=== PATIENT | female | born 1985 | race American Indian/Alaskan Native ===

== ENCOUNTER 2018-06-27 14:07 | Emergency (ER) | payer OTHER ==
[2018-06-27 14:24] VITALS: BP 101/66
--- NOTE | 2018-06-27 14:50 | Emergency Department Report ---
ED Chest Pain HPI - General Chief Complaint: Chest Pain Stated Complaint: CHEST PAIN Time Seen by Provider: 06/27/18 14:45 Source: patient Mode of arrival: Wheelchair Limitations: No Limitations - History of Present Illness Initial Comments: This 33-year-old female here via ambulance report that she is having chest pain since last night without any radiation. Chest pain is located to the mid chest. Pain is 6 out of 10 and feels like something is pressing on his chest. Denies any burning or bruit.. Denies any nausea present but she says she was not suspicious earlier. No radiation of pain. Patient was given Zofran by EMS. Denies any fevers chills. Denies any urinary burning, frequency or urgency. She has reports that she was having some shortness of breath. Denies any abdominal back pain. Denies any vaginal bleeding or discharge. No history of blood clots and no control. MD Complaint: chest pain (chest pain and shortness of breath) -: Last night Onset: during rest Pain Location: substernal Pain Radiation: none Severity: moderate Severity scale (0 -10): 6 Quality: heaviness, pressure Consistency: constant Improves With: nothing Worsens With: nothing Context: other (unknown) re: nausea, dyspnea. denies: vomting, diaphoresis, sense of impending doom Other Symptoms: denies: cough, fever, syncope, rash, acid taste in mouth, leg swelling, palpitations, burping Treatments Prior to Arrival: other (Zofran for nausea via EMS) Aspirin use within the Past 7 Days: (0) No - Related Data On Oral Contraceptives: No Previous Rx's Medication Instructions Recorded Last Taken Type Amoxicillin/Potassium Clav 1 each PO BID #14 tablet 05/26/18 Unknown Rx [Augmentin 875-125 Tablet] Naproxen [Naprosyn] 500 mg PO BID PRN #12 tablet 06/27/18 Unknown Rx Ondansetron [Zofran ODT TAB] 8 mg PO Q8HR PRN #12 tab.rapdis 06/27/18 Unknown Rx Allergies Allergy/AdvReac Type Severity Reaction Status Date / Time No Known Allergies Allergy Verified 06/27/18 14:18 Heart Score - HEART Score History: Slightly suspicious EKG: Normal Age: < 45 Risk factors: No known risk factors Troponin: < normal limit HEART Score: 0 ED Review of Systems ROS: Stated complaint: CHEST PAIN Other details as noted in HPI Constitutional: denies: chills, fever Eyes: denies: vision change ENT: denies: ear pain, throat pain, congestion Respiratory: shortness of breath, SOB at rest. denies: cough, wheezing Cardiovascular: chest pain. denies: palpitations, dyspnea on exertion, edema, syncope Gastrointestinal: nausea. denies: abdominal pain, vomiting, diarrhea, constipation Genitourinary: denies: urgency, dysuria, hematuria, abnormal menses Skin: denies: rash Neurological: denies: headache, weakness, abnormal gait, vertigo ED Past Medical Hx - Past Medical History Previous Medical History?: No Additional medical history: Vaginal delivery x 2 - Surgical History Past Surgical History?: No - Family History Family history: hypertension - Social History Smoking Status: Never Smoker Substance Use Type: None - Medications Home Medications: Home Medications Medication Instructions Recorded Confirmed Last Taken Type Amoxicillin/Potassium Clav 1 each PO BID #14 tablet 05/26/18 Unknown Rx [Augmentin 875-125 Tablet] Naproxen [Naprosyn] 500 mg PO BID PRN #12 tablet 06/27/18 Unknown Rx Ondansetron [Zofran ODT TAB] 8 mg PO Q8HR PRN #12 tab.rapdis 06/27/18 Unknown Rx ED Physical Exam - General Limitations: No Limitations General appearance: alert, in no apparent distress - Head Head exam: Present: atraumatic, normocephalic, normal inspection - Eye Eye exam: Present: normal appearance, PERRL, EOMI Pupils: Present: normal accommodation - ENT ENT exam: Present: normal exam, normal orophraynx, mucous membranes moist - Neck Neck exam: Present: normal inspection, full ROM. Absent: tenderness - Respiratory Respiratory exam: Present: normal lung sounds bilaterally. Absent: respiratory distress, wheezes, rales, rhonchi, stridor, chest wall tenderness, accessory muscle use, decreased breath sounds, prolonged expiratory - Cardiovascular Cardiovascular Exam: Present: regular rate, normal rhythm, normal heart sounds. Absent: systolic murmur, diastolic murmur - GI/Abdominal GI/Abdominal exam: Present: soft, normal bowel sounds. Absent: distended, tenderness, rigid, organomegaly - Extremities Exam Extremities exam: Present: normal inspection, full ROM, normal capillary refill, other (No cce. + 2 pulses in all extremities, no neurovascular compromise). Absent: tenderness, pedal edema, joint swelling, calf tenderness - Back Exam Back exam: Present: normal inspection, full ROM, other (ambulates without any difficulties). Absent: tenderness, CVA tenderness (R), CVA tenderness (L) - Psychiatric Psychiatric exam: Present: anxious (mild anxiety). Absent: depressed, manic, homicidal ideation, suicidal ideation - Skin Skin exam: Present: warm, dry, intact, normal color. Absent: rash ED Course Vital Signs 06/27/18 14:18 Temperature 98.7 F Pulse Rate 77 Respiratory 18 Rate Blood Pressure 101/66 O2 Sat by Pulse 97 Oximetry - Reevaluation(s) Reevaluation #1: 06/27/18 16:34 Patient received 1 L IV fluid normal saline bolus and aspirin 325 mg by mouth. lab for a chest x-ray reviewed and within normal limits. test negative. Patient is feeling better DESTIN score - Destin Score Age > 65: (0) No Aspirin use within the Past 7 Days: (0) No 3 or more CAD Risk Factors: (0) No 2 or more Angina events in past 24 hrs: (0) No Known CAD with more than 50% Stenosis: (0) No Elevated Cardiac Markers: (0) No ST Deviation Greater than 0.5mm: (0) No DESTIN Score: 0 ED Medical Decision Making - Lab Data Result diagrams: 06/27/18 15:01 06/27/18 15:01 Lab Results 06/27/18 06/27/18 06/27/18 Range/Units 15:01 15:01 15:01 WBC 9.6 (4.5-11.0) K/mm3 RBC 4.55 (3.65-5.03) M/mm3 Hgb 14.4 H (10.1-14.3) gm/dl Hct 42.8 (30.3-42.9) % MCV 94 (79-97) fl MCH 32 (28-32) pg MCHC 34 (30-34) % RDW 13.9 (13.2-15.2) % Plt Count 295 (140-440) K/mm3 Lymph % (Auto) 29.4 (13.4-35.0) % Lake % (Auto) 8.0 H (0.0-7.3) % Eos % (Auto) 0.5 (0.0-4.3) % Baso % (Auto) 0.4 (0.0-1.8) % Lymph # 2.8 (1.2-5.4) K/mm3 Lake # 0.8 (0.0-0.8) K/mm3 Eos # 0.0 (0.0-0.4) K/mm3 Baso # 0.0 (0.0-0.1) K/mm3 Seg Neutrophils % 61.7 (40.0-70.0) % Seg Neutrophils # 5.9 (1.8-7.7) K/mm3 D-Dimer 185.39 (0-234) ng/mlDDU Sodium (137-145) mmol/L Potassium (3.6-5.0) mmol/L Chloride (98-107) mmol/L Carbon Dioxide (22-30) mmol/L Anion Gap mmol/L BUN (7-17) mg/dL Creatinine (0.7-1.2) mg/dL Estimated GFR ml/min BUN/Creatinine Ratio % Glucose (65-100) mg/dL Calcium (8.4-10.2) mg/dL Troponin T < 0.010 (0.00-0.029) ng/mL Urine Color (Yellow) Urine Turbidity (Clear) Urine pH (5.0-7.0) Ur Specific [place] (1.003-1.030) Urine Protein (Negative) mg/dL Urine Glucose (UA) (Negative) mg/dL Urine Ketones (Negative) mg/dL Urine Blood (Negative) Urine Nitrite (Negative) Urine Bilirubin (Negative) Urine Urobilinogen (<2.0) mg/dL Ur Leukocyte Esterase (Negative) Urine WBC (Auto) (0.0-6.0) /HPF Urine RBC (Auto) (0.0-6.0) /HPF U Epithel Cells (Auto) (0-13.0) /HPF Urine Mucus /HPF Urine HCG, Qual (Negative) 06/27/18 06/27/18 Range/Units 15:01 16:20 WBC (4.5-11.0) K/mm3 RBC (3.65-5.03) M/mm3 Hgb (10.1-14.3) gm/dl Hct (30.3-42.9) % MCV (79-97) fl MCH (28-32) pg MCHC (30-34) % RDW (13.2-15.2) % Plt Count (140-440) K/mm3 Lymph % (Auto) (13.4-35.0) % Lake % (Auto) (0.0-7.3) % Eos % (Auto) (0.0-4.3) % Baso % (Auto) (0.0-1.8) % Lymph # (1.2-5.4) K/mm3 Lake # (0.0-0.8) K/mm3 Eos # (0.0-0.4) K/mm3 Baso # (0.0-0.1) K/mm3 Seg Neutrophils % (40.0-70.0) % Seg Neutrophils # (1.8-7.7) K/mm3 D-Dimer (0-234) ng/mlDDU Sodium 140 (137-145) mmol/L Potassium 4.3 (3.6-5.0) mmol/L Chloride 103.4 (98-107) mmol/L Carbon Dioxide 23 (22-30) mmol/L Anion Gap 18 mmol/L BUN 11 (7-17) mg/dL Creatinine 0.6 L (0.7-1.2) mg/dL Estimated GFR > 60 ml/min BUN/Creatinine Ratio 18 % Glucose 93 (65-100) mg/dL Calcium 9.1 (8.4-10.2) mg/dL Troponin T (0.00-0.029) ng/mL Urine Color Yellow (Yellow) Urine Turbidity Clear (Clear) Urine pH 8.0 H (5.0-7.0) Ur Specific [place] 1.021 (1.003-1.030) Urine Protein 30 mg/dl (Negative) mg/dL Urine Glucose (UA) Neg (Negative) mg/dL Urine Ketones Neg (Negative) mg/dL Urine Blood Neg (Negative) Urine Nitrite Neg (Negative) Urine Bilirubin Neg (Negative) Urine Urobilinogen 2.0 (<2.0) mg/dL Ur Leukocyte Esterase Tr (Negative) Urine WBC (Auto) 1.0 (0.0-6.0) /HPF Urine RBC (Auto) 9.0 (0.0-6.0) /HPF U Epithel Cells (Auto) 4.0 (0-13.0) /HPF Urine Mucus Few /HPF Urine HCG, Qual Negative (Negative) - EKG Data -: EKG Interpreted by Me (attending physician) EKG shows normal: sinus rhythm (92 beats per minutes) Rate: normal - EKG Data Interpretation: no acute changes, normal EKG - Radiology Data Radiology results: report reviewed, image reviewed interpreted by me: Chest x-ray images reviewed and no normal finding seen. Chest x-ray two-view dictated by radiologist and reports reviewed by myself. I am unable to pop relates results of this area so please refer to reports section for details - Medical Decision Making 33-year-old female here for chest pain and shortness of breath. She had nausea and was given Zofran ODT by EMS. Physical findings is normal and laboratory findings and CBC, CMP, d-dimer, troponin within normal limits. Urine negative for infection and test is negative. EKG normal sinus rhythm and chest x-ray dictated by radiologist and reviewed by myself shows no acute abnormality. Patient was given 1 L of IV fluid and aspirin 325 mg by mouth. Vital signs stable she is afebrile and she currently denies chest pain or shortness of breath at present. Discharge home with her friend in stable condition with prescription for naproxen and Zofran and to follow up with her primary care physician in 2 days - Differential Diagnosis PE, ACS, pleurisy, pneumothorax, PNA, costochondritis, atypical chest pain Critical care attestation.: If time is entered above; I have spent that time in minutes in the direct care of this critically ill patient, excluding procedure time. 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 If your chest pain and shortness of breath returns, return to the emergency room. Take naproxen for pain and Zofran for nausea Prescriptions: Naproxen [Naprosyn] 500 mg PO BID PRN #12 tablet PRN Reason: abdominal cramping Ondansetron [Zofran ODT TAB] 8 mg PO Q8HR PRN #12 tab.rapdis PRN Reason: Nausea And Vomiting Referrals: KALINA RIZZO MD [Primary Care Provider] - 06/29/18 [facility] [Outside] - 06/29/18 RAE SWAIN MD [Staff Physician] - 06/29/18 Forms: Work/School Release Form(ED)
[2018-06-27] MEDS ORDERED: NACL 0.9% 1000 ML 1,000 ML IV ONE (14:51)
[2018-06-27] MEDS ORDERED: ASPIRIN PO ONE (14:52)
[2018-06-27 15:17] LABS: Basophils % (Auto) 0.4 % (0.0-1.8); Eosinophils % (Auto) 0.5 % (0.0-4.3); Hematocrit 42.8 % (30.3-42.9); Hemoglobin 14.4 gm/dl (10.1-14.3); Lymphocytes # (Auto) 2.8 K/mm3 (1.2-5.4); Lymphocytes % (Auto) 29.4 % (13.4-35.0); Mean Corpuscular HGB Conc 34 % (30-34); Mean Corpuscular Volume 94 fl (79-97); Monocytes # (Auto) 0.8 K/mm3 (0.0-0.8); Platelet Count 295 K/mm3 (140-440); Red Blood Count 4.55 M/mm3 (3.65-5.03); Red Cell Distribution Width 13.9 % (13.2-15.2)
[2018-06-27 15:37] LABS: BUN/Creatinine Ratio 18; Blood Urea Nitrogen 11 mg/dL (7-17); Calcium 9.1 mg/dL (8.4-10.2); Hemolysis Index 8
[2018-06-27 16:35] LABS: Bilirubin,Urine NEG (Negative); Blood,Urine NEG (Negative); Color,Urine Yellow (Yellow); Mucus,Urine FEW /HPF
--- NOTE | 2018-06-27 16:37 | XRay Report ---
FINAL REPORT PROCEDURE: Chest. TECHNIQUE: PA and lateral views. HISTORY: Shortness of breath, chest pain. COMPARISON: No prior studies are available for comparison. FINDINGS: The heart and mediastinum appear normal. The lungs are clear and well expanded. There are no pleural effusions. The soft tissues and regional skeleton are unremarkable. IMPRESSION: Normal study.
[2018-06-27 16:39] LABS: HCG Qualitative,Urine Negative (Negative)
== END 2018-06-27 17:20 | disposition home or self-care (01) ==
LOC: ED 14:07
DX: R07.2 Precordial pain (principal); R06.02 Shortness of breath; R11.0 Nausea
CPT/HCPCS: 36415; 71046; 80048; 81001; 81025; 84484; 85025; 85379; 99284; J7030

== ENCOUNTER 2018-12-06 20:25 | Emergency (ER) | payer OTHER ==
[2018-12-06 21:46] VITALS: BP 121/70
== END 2018-12-06 20:57 | disposition left against medical advice (07) ==
LOC: ED 20:25
DX: S61.215A Laceration without foreign body of left ring finger without damage to nail, initial encounter (principal); W26.8XXA Contact with other sharp object(s), not elsewhere classified, initial encounter; Y93.89 Activity, other specified; Y92.89 Other specified places as the place of occurrence of the external cause; Y99.8 Other external cause status; Z53.21 Procedure and treatment not carried out due to patient leaving prior to being seen by health care provider

== ENCOUNTER 2019-01-26 14:38 | Outpatient (CLI) | payer OTHER ==
--- NOTE | 2019-01-26 15:35 | Mammography Report ---
LEFT DIGITAL DIAGNOSTIC CLINICAL: For clip placement after needle biopsy for Dr. Sandoval on 01/19/2019. Pathology revealed i nvasive ductal carcinoma. COMPARISON: None available. FINDINGS: An irregular mass at 3:00 2 cm from the nipple measures 3.5 x 1.7 x 2.1 cm. A biopsy clip i s identified at the margin of the mass. IMPRESSION: Satisfactory clip deployment. Signer Name: Francisco Ortiz MD Signed: 01/26/2019 3:31 PM Workstation Name: [id number]
== END 2019-01-26 14:39 | disposition home or self-care (01) ==
LOC: SPVWC 14:38
PROVIDERS: ATTEND Surgery
DX: R92.8 Other abnormal and inconclusive findings on diagnostic imaging of breast (principal)

== ENCOUNTER 2019-02-09 14:05 | Outpatient (CLI) | payer OTHER ==
--- NOTE | 2019-02-10 13:54 | Magnetic Resonance Report ---
BILATERAL BREAST MR WITHOUT AND WITH GADOLINIUM INDICATION: Newly diagnosed left breast cancer. 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 COMPARISONS: 01/26/2019 left mammogram TECHNIQUE: Axial 1.0 mm T1 without, axial high-resolution 2.0 mm T2 and axial 1.0 mm dynamic vibrant high-resolution postcontrast T1 fat saturation sequences on a 1.5 Kimberlee magnet. The examination was p erformed with an 8-channel dedicated [place] breast coil. Post-processing with CAD and subtraction was performed on an Glide workstation. 16.0 cc of MultiHance was injected without incident for the c ontrast portion of the exam. Consent was obtained prior to the administration of the contrast. FINDINGS: RIGHT BREAST: Minimal background parenchymal enhancement. No mass or suspicious enhancement. No suspi cious right axillary or right internal mammary lymph nodes. LEFT BREAST: Minimal background parenchymal enhancement. An irregular enhancing mass at 3:00 3.5 cm f rom the nipple correlates with the known cancer. It measures 3.7 x 2.4 x 2.2 cm and demonstrates hete rogeneous enhancement with mixed kinetics, 286% peak enhancement and 75% type III washout. The mass e xtends to within 1 cm of the skin but there is no apparent skin involvement. No edema the skin or dontrell ast. No other mass or suspicious enhancement of the left breast. A single suspicious left level II ax illary lymph node corresponds to the biopsy proven metastatic lymph node and it measures 2.6 x 2.3 cm . No other suspicious lymph nodes. IMPRESSION: 1. A 3.7 cm known left breast cancer at 3:00 3.5 cm above the nipple. 2. No other suspicious lesion of either breast. 3. A single left axillary metastatic yesy metastasis and no other suspicious lymph nodes. FINAL ASSESSMENT: BI-RADS Category: 6 Known Cancer Signer Name: Francisco Ortiz MD Signed: 02/10/2019 1:49 PM Workstation Name: [id number]
== END 2019-02-09 14:06 | disposition home or self-care (01) ==
LOC: SPVIMAG 14:05
PROVIDERS: ATTEND Surgery
DX: C77.3 Secondary and unspecified malignant neoplasm of axilla and upper limb lymph nodes (principal); C50.412 Malignant neoplasm of upper-outer quadrant of left female breast
CPT/HCPCS: A9577; C8908; 77049

== ENCOUNTER 2019-02-12 08:56 | Day surgery (SDC) | payer OTHER ==
[2019-02-12] MEDS ORDERED: LACTATED RINGERS 1,000 ML IV SCH (09:00)
[2019-02-12] MEDS ORDERED: ANCEF/STERILE WATER 2 GM/20 ML IV NR (10:00)
[2019-02-12] MEDS ORDERED: ZOFRAN IV PRN (10:29)
[2019-02-12] MEDS ORDERED: MORPHINE IV NR (10:35)
--- NOTE | 2019-02-12 10:35 | Anesthesia Day of Surgery ---
Anesthesia Day of Surgery - Day of Surgery Patient Examined: Yes Patient H&P Reviewed: Yes Patient is NPO: Yes
--- NOTE | 2019-02-12 10:37 | Anesthesia Consultation ---
Anesthesia Consult and Med Hx Date of service: 02/12/19 - Airway Anesthetic Teeth Evaluation: Good, Chipped ROM Head & Neck: Adequate Mental/Hyoid Distance: Adequate Mallampati Class: Class II Intubation Access Assessment: Good - Pre-Operative Health Status ASA Pre-Surgery Classification: ASA2 Proposed Anesthetic Plan: General - Pulmonary Hx Smoking: Yes (BRI SINCE AGE 16; QUIT NOVEMBER 2018) Hx Asthma: No COPD: No - Cardiovascular System Hx Hypertension: No Hx Heart Attack/AMI: No Hx Pacemaker: No Hx Internal Defibrillator: No - Central Nervous System Hx Neuromuscular Disorder: Yes (Neuropathy-both arms. Migraines) Hx Psychiatric Problems: No - Gastrointestinal Hx Gastroesophageal Reflux Disease: Yes - Endocrine Hx Renal Disease: No Hx Liver Disease: No - Hematic Hx Sickle Cell Disease: No - Other Systems Hx Alcohol Use: Yes Hx Substance Use: No Hx Cancer: Yes (Breast Cancer)
[2019-02-12] MEDS ORDERED: VERSED IV NR (11:00)
[2019-02-12] MEDS ORDERED: NACL 0.9% 100 ML ONE (12:00)
[2019-02-12] MEDS ORDERED: MARCAINE 0.25% INFILTRATI ONE (12:00)
[2019-02-12] MEDS ORDERED: HEPARIN 10,000 UNITS/10 ML ONE (12:00)
[2019-02-12] MEDS ORDERED: XYLOCAINE 1% 20 mL ONE (12:00)
[2019-02-12] MEDS ORDERED: SUBLIMAZE ONE (12:05)
[2019-02-12] MEDS ORDERED: DIPRIVAN 10 MG/ML IV ONE (12:05)
[2019-02-12] MEDS ORDERED: XYLOCAINE MPF 2% ONE (12:05)
[2019-02-12] MEDS ORDERED: MARCAINE 0.5% INFILTRATI ONE (12:51)
[2019-02-12] MEDS ORDERED: XYLOCAINE 1% 20 mL INFILTRATI ONE (12:52)
[2019-02-12] MEDS ORDERED: HEPARIN 10,000 UNITS/10 ML IV ONE (12:52)
[2019-02-12] MEDS ORDERED: NACL 0.9% IV ONE (12:54)
[2019-02-12] MEDS ORDERED: NACL 0.9% IR ONE (13:00)
[2019-02-12] MEDS ORDERED: DECADRON ONE (13:24)
[2019-02-12] MEDS ORDERED: ZOFRAN ONE (13:24)
--- NOTE | 2019-02-12 13:29 | Short Stay Summary ---
Short Stay Documentation Date of service: 02/12/19 - History Principal diagnosis: left breast cancer - Allergies and Medications Current Medications: Allergies No Known Allergies Allergy (Verified 02/09/19 16:50) Home Medications Medication Instructions Recorded Confirmed Last Taken Type No Known Home Medications [No 02/09/19 02/09/19 Unknown History Reported Home Medications] Active Medications Cefazolin Sodium (Ancef/Sterile Water 2 Gm/20 Ml) 2 gm IV PREOP NR Stop: 02/12/19 18:00 Fentanyl (Sublimaze) 50 mcg IV Q5MIN PRN PRN Reason: Pain , Severe (7-10) Stop: 02/12/19 20:00 Lactated Ringer's (Lactated Ringers) 1,000 mls @ 100 mls/hr IV DIRECT PEREZ Last Admin: 02/12/19 09:40 Dose: 100 mls/hr Documented by: Midazolam HCl (Versed) 2 mg IV PREOP NR Stop: 02/12/19 23:59 Last Admin: 02/12/19 11:05 Dose: 2 mg Documented by: Ondansetron HCl (Zofran) 4 mg IV ONCE PRN PRN Reason: Nausea And Vomiting - Brief post op/procedure progress note Date of procedure: 02/12/19 Pre-op diagnosis: left breast cancer Post-op diagnosis: same Procedure: right sided internal jugular port a cath with mindray ultrasound guidance Anesthesia: GETA, local Findings: good placement of port without PTX on post op CXR Surgeon: GABRIELA MEJIA Estimated blood loss: minimal Pathology: none Condition: stable - Hospital course Hospital course: Pt observed in PACU and discharged to home in stable condition when criteria met - Disposition Condition at discharge: Good Short Stay Discharge Plan Activity: no restrictions Diet: regular Wound: open to air Additional Instructions: SEE PRINTED DC INSTRUCTIONS Follow up with: PRIMARY CARE, [Primary Care Provider] - 7 Days GABRIELA MEJIA DO [Staff Physician] - 10 Days Prescriptions: HYDROcodone/APAP 5-325 [[place] 5/325] 1 each PO Q6HR PRN #15 tablet PRN Reason: Pain
--- NOTE | 2019-02-12 13:34 | Fluoroscopy Report ---
FLUOROSCOPY CENTRAL VENOUS DEVICE PLACEMENT HISTORY: Left breast cancer, Powhay-i-Xeyf insertion. FINDINGS: 47 seconds of fluoroscopy time was provided by radiology during right IJ Xkilac-w-Ptqu plac ement. 2 AP images of the chest are presented. The distal tip of the Agjpaq-n-Pfkl terminates in the superior right atrium. Heart and mediastinal structures are within normal limits. The lungs are clear . No evidence for pneumothorax. IMPRESSION: Right Xkopud-y-Zeco placement as described. No pneumothorax. Signer Name: Chance Good Jr, MD Signed: 02/12/2019 1:30 PM Workstation Name: [id number]
[2019-02-12] MEDS: SUBLIMAZE IV PRN ×2 (13:43→13:55)
[2019-02-12 15:01] VITALS: BP 116/75
--- NOTE | 2019-02-12 15:04 | Operative Report ---
Operative Report Operative Report: Date of procedure: 02/12/19 Pre-op diagnosis: left breast cancer Post-op diagnosis: same Procedure: right sided internal jugular port a cath with mindray ultrasound guidance Anesthesia: GETA, local Findings: good placement of port without PTX on post op CXR Surgeon: GABRIELA MEJIA Estimated blood loss: minimal Pathology: none Condition: stable - Hospital course Hospital course: Pt observed in PACU and discharged to home in stable condition when criteria met HPI and indication: Patient is a 34-year-old female who has recently been diagnosed with left-sided breast cancer. The patient is seen by Dr. Miller and deemed a candidate for chemotherapy. All of the risks associated with the procedure were discussed with the patient including but not limited to pneumothorax, infection, bleeding, malpositioned port, injury to other structures. The patient understands and all questions were answered. Consent was signed and placed on chart. Procedure in detail: The patient was identified in the preoperative area, taken back to operating room, placed on operating table in supine position. After anesthesia was induced both arms were tucked and upper chest and neck were prepped and draped in usual sterile fashion. A timeout was performed. The was placed in Trendelenburg position. Local anesthetic was infiltrated into the skin at the intended puncture site. The right subclavian vein was seen using ultrasound but was deep with a large degree of respiratory variation. I therefore turned my attention to the right internal jugular vein. The right internal jugular vein was visualized on ultrasound. The right internal jugular vein was accessed on the first stick and there was return of dark red nonpulsatile blood. The wire was threaded under fluoroscopy without resistance and positioning confirmed. The needle was then removed. Using a 15 blade, an incision was made in the right upper chest and dissection carried down through the skin and subcutaneous tissue using Bovie electrocautery. Hemostasis was achieved along the way. A pocket for the port was then created bluntly and with electrocautery. The catheter was flushed and tunneled from the pocket to the wire. A breakaway catheter/dilator sheath then inserted over the wire under fluoroscopy, and the wire and dilator removed. The catheter was then inserted through the breakaway catheter which was then removed. The catheter sat flush under the skin. Using continuous fluoroscopy, the catheter was pulled back until the tip was visualized in the right atrium. The catheter was then cut to size and the port attached in the usual fashion. The port was then sutured into place to the pre-pectoral fascia using 2-0 Vicryl interrupted sutures. The wound was irrigated and hemostasis ensured. The port was tested with heparinized saline and there was return of blood and it flushed easily. The port was then instilled with 3000 units of heparin. The deep dermal layer was then closed with interrupted 3-0 Vicryl stitches. The skin incisions were closed with 4-0 Monocryl subcuticular stitches and skin glue. Intraoperative chest x-ray did show good positioning of the port, without evidence of pneumothorax At the end of the case, all sponge, instrument, sharp counts were correct 2. The patient was awoken from anesthesia and taken to PACU in stable condition
--- NOTE | 2019-02-12 16:31 | Post Anesthesia Evaluation ---
- Post Anesthesia Evaluation Patient Participated: Yes Airway Patent: Yes Stable Respiratory Function: Yes Nausea/Vomiting: No Temp > 96.8F: Yes Pain Manageable: Yes Adequeate Hydration: Yes Anesthesia Complications: No Block Receding Appropriately: Not Applicable Patient on Ventilator: No
== END 2019-02-12 15:40 | disposition home or self-care (01) ==
LOC: OR 08:56
PROVIDERS: ATTEND Surgery
DX: C50.912 Malignant neoplasm of unspecified site of left female breast (principal); G62.9 Polyneuropathy, unspecified; G43.909 Migraine, unspecified, not intractable, without status migrainosus; K21.9 Gastro-esophageal reflux disease without esophagitis; Z79.899 Other long term (current) drug therapy; Z87.891 Personal history of nicotine dependence; Z72.89 Other problems related to lifestyle; Z80.8 Family history of malignant neoplasm of other organs or systems; Z98.890 Other specified postprocedural states
CPT/HCPCS: 36561; 77001; 81025; C1788; J0690; J1100; J1644; J2250; J2270; J2405; J2704; J3010; J7120

== ENCOUNTER 2019-07-07 05:47 | Observation (INO) | payer MEDICAID, OTHER ==
[~2019-07-07 05:47] MED LIST: BACITRACIN 50,000 UNIT VIAL IR ONE; GENTAMICIN 40 MG/ML VIAL 2 ML IV ONE; SODIUM CHLORIDE 0.9% IRR 1,500 ML BOTTLE IR ONE; SODIUM CHLORIDE 0.9% P/F 10 ML VIAL INFILTRATI ONE; WATER FOR IRRIG STERILE 1,500 ML BOTTLE IR ONE; ceFAZolin 1 GM VIAL IV ONE; ceFAZolin/Water 2 GM/20 ML 2 GM/20 ML SYRINGE IV NR
[2019-07-07] MEDS ORDERED: GABAPENTIN 300 MG CAP PO NR (06:00)
[2019-07-07] MEDS ORDERED: SCOPOLAMINE TRANSDERMAL PATCH 72 HR TD NR (06:00)
[2019-07-07] MEDS ORDERED: MIDAZOLAM 2 MG/2 ML INJ IV NR ×2 (06:00→09:30)
[2019-07-07] MEDS ORDERED: CELECOXIB 200 MG CAP PO NR (06:00)
[2019-07-07] MEDS ORDERED: fentaNYL 100 MCG/2 ML INJ IV PRN (06:00)
[2019-07-07] MEDS ORDERED: MAGNESIUM OXIDE 400 MG TAB PO NR (07:08)
[2019-07-07] MEDS ORDERED: ONDANSETRON 4 MG/2 ML INJ IV PRN (07:08)
[2019-07-07] MEDS ORDERED: ACETAMINOPHEN 500 MG TAB PO NR (07:08)
--- NOTE | 2019-07-07 07:09 | Anesthesia Day of Surgery ---
Anesthesia Day of Surgery - Day of Surgery Patient Examined: Yes Patient H&P Reviewed: Yes Patient is NPO: Yes
--- NOTE | 2019-07-07 07:12 | Anesthesia Consultation ---
Anesthesia Consult and Med Hx Date of service: 07/07/19 - Airway Anesthetic Teeth Evaluation: Good (two missing), Chipped ROM Head & Neck: Adequate Mental/Hyoid Distance: Adequate Mallampati Class: Class III Intubation Access Assessment: Probably Good - Pre-Operative Health Status ASA Pre-Surgery Classification: ASA2 Proposed Anesthetic Plan: General Nerve Block: PEC - Pulmonary Hx Smoking: Yes (FOR A YEAR; QUIT 01/2019) Hx Asthma: No COPD: No - Cardiovascular System Hx Hypertension: No Hx Heart Attack/AMI: No Hx Pacemaker: No Hx Internal Defibrillator: No - Central Nervous System Hx Neuromuscular Disorder: Yes (Neuropathy-both arms. Migraines) Hx Seizures: No Hx Back Pain: Yes (LOWER; SIDES AND NIGHT) - Gastrointestinal Hx Gastroesophageal Reflux Disease: Yes - Endocrine Hx Renal Disease: No Hx Liver Disease: No - Hematic Hx Sickle Cell Disease: No - Other Systems Hx Alcohol Use: Yes (OCCA WINE) Hx Substance Use: Yes (MARIJUANA (LAST USE NOVEMBER 2018)) Hx Cancer: Yes Hx Obesity: Yes - Additional Comments Anesthesia Medical History Comments: Here [id number] and had PONV postop
[2019-07-07] MEDS ORDERED: HYDROmorphone 1 MG/1 ML INJ ONE ×2 (07:30→15:36)
[2019-07-07] MEDS ORDERED: ROCURONIUM 50 MG/5 ML INJ IV ONE ×2 (07:31→10:28)
[2019-07-07] MEDS ORDERED: LIDOCAINE MPF (2%) 20 MG/1 ML VIAL 5 ML ONE (07:31)
[2019-07-07] MEDS ORDERED: propofoL 200 MG/20 ML VIAL IV ONE (07:31)
[2019-07-07] MEDS: LACTATED RINGERS 1,000 ML IV SCH (07:35)
[2019-07-07] MEDS ORDERED: ceFAZolin 1 GM VIAL ONE ×2 (07:36→12:25)
[2019-07-07] MEDS ORDERED: METHYLENE BLUE 50 MG/10 ML AMP ONE (07:37)
[2019-07-07] MEDS ORDERED: GENTAMICIN 40 MG/ML VIAL 2 ML ONE (07:37)
[2019-07-07] MEDS ORDERED: BACITRACIN 50,000 UNIT VIAL ONE (07:38)
[2019-07-07] MEDS ORDERED: SODIUM CHLORIDE P/F VIAL 10 ML 30 ML ONE (07:40)
[2019-07-07] MEDS ORDERED: BUPIVACAINE-EPINEPHRINE/PF 0.5%-1:200,000 (30 ML) VIAL INFILTRATI ONE (07:43)
--- NOTE | 2019-07-07 08:05 | Operative Report ---
Operative Report Operative Report: Operative Report: Date of Service: June 23, 2019 Preoperative diagnosis: Left breast cancer of the lower outer quadrant Postoperative diagnosis: Same Procedure: Left total mastectomy with sentinel lymph node biopsy and right total mastectomy Surgeon: Maria Antonia Sandoval M.D. Detective Captain: Mr. Allen Anesthesia: Gen. Findings: Left breast clip present within left total mastectomy; x4 sentinel lymph node identified and negative for malignancy on frozen section of pathology Complications: None Drains: 2 19 Dominican CLAY drains bilaterally Estimated blood loss: 100 cc Disposition: Plastic surgery proceeded with bilateral implant removal and placement of bilateral tissue expanders Indications for operative procedure: This is a 40-year-old lady with stage II left breast cancer of the lower outer quadrant, ER positive. Recommendations were to proceed with a left total mastectomy given extensive disease seen on breast MRI and patient wanted to proceed with a bilateral mastectomy. She was evaluated by plastic surgery and recommendations were for delayed plastic surgery given her current extensive tobacco product usage. She understands to role of possible adjuvant XRT pending final pathology and medical oncology will obtain Oncotype DX for evaluation for adjuvant chemotherapy. She wished to p roceed with the above procedure. Procedure in detail: The patient was taken to the operating room and was placed supine. Gen. anesthesia was administered. The left nipple was injected with radioisotope and 1 cc of methylene blue. Bilateral chest and axillas were prepped and draped in the normal sterile operative fashion. Timeout was performed. Typical mastectomy incision markings were made with left mastectomy incision encompassing known cancer around the 4:00 position. Ultrasound was used as well for incision markings. Attention was taken toward the right breast first. First began raising of the superior flap to the level of the clavicle superiorly and posteriorly to the pectoralis muscle. Followed by raising of the medial flap to the level of the sternum and posteriorly to the pectoralis muscle. Followed by raising of the lateral flap to the level of the latissimus dorsi muscle and taken down posteriorly. Followed by raising of the inferior flap to the level of the inframammary fold taken posterior to the pectoralis muscle. The mastectomy/breast was removed from the pectoralis muscle without incident. The specimen was appropriately marked and sent to pathology. Hemostasis was o btained. The chest wall cavity was irrigated. A 19 Dominican CLAY drain was placed. The subcutaneous tissues were approximated and close using interrupted 3-0 Vicryl and the skin closed using 4-0 running Monocryl followed by dermabond. Attention was taken towards the left breast. A gamma probe was inserted into the axilla to identify the sentinel lymph node location with uptake noted. Skin markings were made to include the area of known cancer. A skin incision was made with a 10 blade knife and dissection taken down to the subcutaneous tissues. First began raising of the superior flap to the level of the clavicle superiorly and posteriorly to the pectoralis muscle. Followed by raising of the medial flap to the level of the sternum and posteriorly to the pectoralis muscle. Followed by raising of the lateral flap to the level of the latissimus dorsi muscle and taken down posteriorly. The gamma probe was inserted into the axilla, the axillary fascia was opened and 4 SLNS were identified that were dissected free and sent to pathology. All SLNs sent to pathology with findings negative for malignancy on frozen section. Then proceeded with raising of the inferior flap to the level of the inframammary fold taken posterior to the pectoralis muscle. The mastectomy/breast was removed from the pectoralis muscle without incident. The specimen was appropriately marked and sent to radiology with findings of breast clip present and sent to pathology. Hemostasis was obtained. The chest wall cavity was irrigated. A 19 Dominican CLAY drain was placed. The subcutaneous tissues were approximated and close using interrupted 3-0 Vicryl and the skin closed using 4-0 running Monocryl followed by dermabond. She tolerated surgery very well and was awaken from anesthesia without any complications and transported to PACU in good condition.
[2019-07-07] MEDS ORDERED: METHYLENE BLUE 50 MG/10 ML AMP IRRIGATION ONE (08:56)
[2019-07-07] MEDS ORDERED: ONDANSETRON 4 MG/2 ML INJ ONE (09:00)
[2019-07-07] MEDS ORDERED: PHENYLEPHRINE/NS 1,000 MCG/10 ML SYRINGE (OR USE) IV ONE (09:04)
[2019-07-07] MEDS ORDERED: WATER FOR IRRIG STERILE 1,500 ML BOTTLE IR ONE (10:34)
[2019-07-07] MEDS ORDERED: LACTATED RINGERS 1,000 ML ONE ×2 (10:51→15:50)
[2019-07-07] MEDS ORDERED: SODIUM CHLORIDE 0.9% P/F 10 ML VIAL INFILTRATI ONE (12:59)
[2019-07-07] MEDS ORDERED: GENTAMICIN 40 MG/ML VIAL 2 ML IV ONE (12:59)
[2019-07-07] MEDS ORDERED: BACITRACIN 50,000 UNIT VIAL IR ONE (12:59)
[2019-07-07] MEDS ORDERED: ceFAZolin 1 GM VIAL IV ONE (12:59)
[2019-07-07] MEDS ORDERED: SODIUM CHLORIDE 0.9% IRR 1,500 ML BOTTLE IR ONE (12:59)
--- NOTE | 2019-07-07 13:30 | Operative Report ---
Operative Report Operative Report: Operative Report: Date of Service: July 07, 2019 Preoperative diagnosis: Left breast cancer of the upper outer quadrant Postoperative diagnosis: Same Procedure: Left total mastectomy with sentinel lymph node biopsy followed by ALND and right total mastectomy Surgeon: Maria Antonia Sandoval M.D. Lumber Material Handler: Dr. Tolentino Anesthesia: Gen. Findings: Left breast clip present within left total mastectomy. 2 sentinel lymph nodes identified and first SLN positive for malignancy on frozen section of pathology and proceeded with left axillary lymph node dissection Complications: None Drains: Per plastic surgery Estimated blood loss: 100 cc Disposition: Plastic surgery proceeded with bilateral implant placement of bilateral tissue expanders Indications for operative procedure: This is a 34-year-old lady with stage II left breast cancer of the upper outer quadrant, IDCA grade 3 [id number] ER/CT/Her-2 positive. She completed neoadjuvant chemotherapy and recommendations were to proceed with a bilateral mastectomy given positive NERI gene mutation and left SLNB with possible ALND. She wished to proceed with a bilateral tissue expanders in conjunction with plastic surgery. She wished to proceed with the above procedure. Procedure in detail: The patient was taken to the operating room and was placed supine. Gen. anesthesia was administered. The left nipple was injected with radioisotope and 1 cc of methylene blue. Bilateral chest and axillas were prepped and draped in the normal sterile operative fashion. Timeout was performed. Typical mastectomy incision markings were made. Attention was taken toward the right breast first. First began raising of the superior flap to the level of the clavicle superiorly and posteriorly to the pectoralis muscle (medial superior flap to level of port given prior infection). Followed by raising of the medial flap to the level of the sternum and posteriorly to the pectoralis muscle. Followed by raising of the lateral flap to the level of the latissimus dorsi muscle and taken down posteriorly. Followed by raising of the inferior flap to the level of the inframammary fold taken posterior to the pectoralis muscle. The mastectomy/breast was removed from the pectoralis muscle without incident. The specimen was appropriately marked and sent to pathology. Hemostasis was obtained. The right port was identified and unharmed. Attention was taken towards the left breast. A gamma probe was inserted into the axilla to identify the sentinel lymph node location with uptake noted. Skin markings were made. A skin incision was made with a 10 blade knife and dissection taken down to the subcutaneous tissues. First began raising of the superior flap to the level of the clavicle superiorly and posteriorly to the pectoralis muscle. Followed by raising of the medial flap to the level of the sternum and posteriorly to the pectoralis muscle. Followed by raising of the lateral flap to the level of the latissimus dorsi muscle and taken down posteriorly. The gamma probe was inserted into the axilla, the axillary fascia was opened and 2 axillary lymph nodes were identified that were dissected free and sent to pathology. Patient with positive axillary lymph node prior to chemotherapy. Axillary lymph nodes were sent to pathology with findings positive for malignancy noted on frozen section of the first SLN and second SLN would then be processed permanently given ALND was indicated with first positive SLN for macrometastasis. Then proceeded with raising of the inferior flap to the level of the inframammary fold taken posterior to the pectoralis muscle. The mastectomy/breast was removed from the pectoralis muscle without incident. The specimen was appropriately marked and sent to radiology with findings of breast clip present and sent to pathology. Attention was then taken towards the left axilla. First began opening of the axillary fascia further. The lattismus dorsi muscle was identified and followed superiorly. Then proceeded with identification of the axillary vein followed by identification of the thoracodorsal bundle and long thoracic nerve. Axillary lymph nodes were then removed from the above boundaries with the aid of the bovie cautery in a sweeping-like motion and then sent to pathology. Axillary lymph nodes from level I and II were removed. Both nerves were identified and unharmed. Hemostasis was noted. The chest wall was irrigated and suctioned. Hemostasis was obtained. Plastic surgery then proceeded with placement of bilateral tissue expanders.
[2019-07-07] MEDS ORDERED: oxyCODONE /ACETAMINOPHEN 5-325MG TAB PO PRN (13:31)
[2019-07-07] MEDS ORDERED: ACETAMINOPHEN 325 MG TAB PO PRN (13:31)
[2019-07-07] MEDS ORDERED: diphenhydrAMINE 25 MG CAP PO PRN (13:31)
[2019-07-07] MEDS ORDERED: METOCLOPRAMIDE 10 MG TAB PO PRN (13:31)
--- NOTE | 2019-07-07 13:58 | XRay Report ---
LEFT BREAST SPECIMEN RADIOGRAPH INDICATION: LT BREAST CANCER. COMPARISON: 05/28/2019 and 01/26/2019 mammograms FINDINGS: A single periareolar biopsy clip is identified within the whole breast specimen. IMPRESSION: 1. Excision of the known cancer. Signer Name: Francisco Ortiz MD Signed: 07/07/2019 1:54 PM Workstation Name: [id number]
[2019-07-07] MEDS ORDERED: LACTATED RINGERS 1,000 ML IV SCH (14:00)
[2019-07-07] MEDS ORDERED: fentaNYL 100 MCG/2 ML INJ ONE (14:44)
[2019-07-07] MEDS: HYDROmorphone 1 MG/1 ML INJ IV PRN ×4 (15:06→15:57)
--- NOTE | 2019-07-07 15:25 | Operative Report ---
PREOPERATIVE DIAGNOSIS: Left-sided breast cancer. POSTOPERATIVE DIAGNOSIS: Left-sided breast cancer. PROCEDURE: 1. Bilateral breast reconstruction using tissue expanders. 2. Bilateral breast reconstruction using adjacent tissue transfer 225 square cm each side for a total of 450 square cm. 3. Application of YVES negative pressure wound VAC device to bilateral breasts for postoperative wound healing. SURGEON: Dr. Vipul Richey. VISITING NURSE: None. ANESTHESIA: General. OPERATIVE INDICATIONS: This is a 34-year-old female who was referred to me by Dr. Sandoval for breast reconstruction. The patient had a left-sided breast cancer with very large breast and ptosis. Discussion was had with the patient regarding different options for breast reconstruction. She elected for a tissue paper machine supervisor to implant reconstruction. We went over informed consent and risks and benefits and she agreed. OPERATIVE DETAILS: The patient was marked the day prior in the office for a Avina pattern mastectomy with preservation of the inferior dermal pedicle flap as a substitute for a biological mesh to support and wrap and cover the implant. The patient was brought to the operating room by Dr. Sandoval. Her portion will be dictated separately. I arrived to the operating room. The patient was under anesthesia and received preoperative antibiotics and was prepped and draped. Dr. Sandoval had finished a prophylactic right side and was working on finishing the left side. I came in and began my portion. I assessed the right side and there was a mastectomy defect. We measured the chest wall base diameter, which was roughly 13 and 13.5 cm in width. We chose our appropriate implant. We used a [place] Art[place]ra ultra high profile 700 mL implant and on the right side, the serial number is [id number]. We deflated the air and then inflated it with 300 mL of saline. We then irrigated, achieved hemostasis and then inferiorly, we had elevated an inferiorly based dermal pedicle, taken down to the inframammary fold. I then de-epithelialized the outer layer of it and then we made some additional incisions medially and laterally in order to mobilize the flap and then used as an advancement and rotational flap to bring up to cover the tissue paper machine supervisor. The tissue paper machine supervisor was sewn to the chest wall using 2-0 PDS sutures along the suture tabs and then the flap was then advanced up and around the lateral border of the flap. We secured it to the lateral chest wall with 2-0 PDS and the medial chest wall and the superior chest wall above the implant, all with 2-0 PDS spanning sutures. This provided a sling for the implant as well as lower pole coverage of the implant as we are doing a prepectoral reconstruction. We then placed a 15 and a 19-Mexican round Daniel drain and then irrigated, achieved hemostasis and began with closure. Closure was done with 2-0 Vicryl to reapproximate the deeper tissues and 3-0 Monocryl deep dermals and then a 3-0 Monocryl running subcuticular for the vertical closure and a 3-0 Monocryl running subcuticular with a barbed Quill suture for the inframammary closure. I then applied a YVES negative pressure wound VAC device to Biopatches and Tegaderm to the drain sites. Dr. Sandoval finished the left-sided mastectomy and axillary lymph node dissection, so I went over to that side. We assessed the defect again. We achieved hemostasis and irrigated and the same procedure was performed on the left. We used the same size implant and the serial number on the left that was [id number] and on that side as well, we also created the inferior dermal flap, de-epithelialized and used it as an advancement rotational flap. On each side, the total area was approximately 225 square, approximately 15 x 15 cm in size, so a total of 450 square cm of adjacent tissue transfer was performed during this operation. Once the implants were secured again on the left side, we placed a 15 and 19-Mexican round Daniel drains and then closed in the same fashion as the right side YVES negative pressure wound VAC device was applied to the left side as well as Biopatches and Tegaderms. The patient tolerated the procedure well. She was awakened from general anesthesia, transferred to PACU in stable condition. ESTIMATED BLOOD LOSS: Minimal. COMPLICATIONS: None. SPECIMENS: None per plastics. JOB# [id number] CHARLIE/RITA
--- NOTE | 2019-07-07 17:24 | Post Anesthesia Evaluation ---
- Post Anesthesia Evaluation Patient Participated: Yes Airway Patent: Yes Stable Respiratory Function: Yes Nausea/Vomiting: No Temp > 96.8F: Yes Pain Manageable: Yes Adequeate Hydration: Yes Anesthesia Complications: No
[2019-07-07] MEDS: MORPHINE 2 MG/1 ML INJ IV PRN ×2 (18:04→22:41)
[2019-07-07] MEDS: ONDANSETRON 4 MG/2 ML INJ IV PRN (18:34)
[2019-07-07] MEDS ORDERED: MORPHINE 2 MG/1 ML INJ IV ONE (18:54)
[2019-07-07] MEDS ORDERED: HYDROcodone/ACETAMINOPHEN 5-325 MG TAB PO PRN (18:54)
[2019-07-07] MEDS ORDERED: HYDROmorphone 2 MG TAB PO PRN (18:55)
[2019-07-07] MEDS: DOCUSATE SODIUM 100 MG CAP PO SCH ×2 (22:44)
[2019-07-08] MEDS: MORPHINE 2 MG/1 ML INJ IV PRN (02:30)
[2019-07-08] MEDS: ONDANSETRON 4 MG/2 ML INJ IV PRN (02:38)
--- NOTE | 2019-07-08 05:30 | Discharge Summary ---
Providers - Providers Date of Admission: 07/07/19 13:31 Date of discharge: 07/08/19 Attending physician: JESSICA JENKINS Primary care physician: OIL DISTRIBUTOR TENDER Hospitalization Condition: Good Procedures: bilateral mastectomies and assembly line upholsterer reconstruction Hospital course: pain controlled, ambulate, advance diet, control nausea, drain teaching Disposition: DC-01 TO HOME OR SELFCARE Core Measure Documentation - Palliative Care Palliative Care/ Comfort Measures: Not Applicable - Core Measures Any of the following diagnoses?: none Exam - Physical Exam Narrative exam: incisions c/d/i, no signs of bleeding or infection. Drains are serosang. Chest flat. YVES dry and holding suction. - Constitutional Vitals: Temp Pulse Resp BP Pulse Ox 100.3 F H 87 18 131/65 97 07/08/19 00:30 07/08/19 00:30 07/08/19 03:29 07/08/19 00:30 07/07/19 16:51 General appearance: Present: no acute distress Plan Activity: other (no lifting, no shower, keep YVES dry and in place, drain teaching. ) Diet: regular Wound: other (YVES keep dry for 1 week) Follow up with: CAMI GODRON MD [Primary Care Provider] - 7 Days ANTHONY RICO MD [Staff Physician] - 14 Days JESSICA JENKINS MD [Staff Physician] - 7 Days
[2019-07-08] MEDS: ACETAMINOPHEN 500 MG TAB PO SCH ×3 (06:06→16:06)
[2019-07-08] MEDS: GABAPENTIN 300 MG CAP PO SCH ×3 (06:17→22:40)
[2019-07-08] MEDS: LACTATED RINGERS 1,000 ML IV SCH (06:20)
[2019-07-08] MEDS: ONDANSETRON 8 MG ODT TAB PO PRN ×2 (06:48→22:53)
[2019-07-08] MEDS: DOCUSATE SODIUM 100 MG CAP PO SCH ×2 (09:17→09:25)
[2019-07-08] MEDS: oxyCODONE /ACETAMINOPHEN 5-325MG TAB PO PRN ×3 (09:36→22:38)
[2019-07-08] MEDS ORDERED: IBUPROFEN 600 MG TAB PO ONE (17:32)
[2019-07-08] MEDS ORDERED: MORPHINE 2 MG/1 ML INJ IV ONE (17:34)
[2019-07-08] MEDS ORDERED: MORPHINE 2 MG/1 ML INJ IV PRN (17:50)
[2019-07-08] MEDS ORDERED: ACETAMINOPHEN 325 MG TAB PO PRN (20:00)
[2019-07-08 20:45] LABS: BUN/Creatinine Ratio 13; Blood Urea Nitrogen 10 mg/dL (7-17); Calcium 8.4 mg/dL (8.4-10.2); Hemolysis Index 28
--- NOTE | 2019-07-08 21:44 | Cat Scan Report ---
CTA CHEST WITH IV CONTRAST INDICATION: Chest pain. History of breast cancer. TECHNIQUE: Axial CT images were obtained through the chest after injection of IV contrast. Coronal oblique 2-D reconstruction images were produced. 3 plane MIP reconstruction images were produced at an [employer] workstation. All CTs at this facility utilize dose reduction techniques including automated expos ure control, iterative reconstruction and weight based dosing when appropriate to reduce patient radi ation dose to as low as reasonable achievable. COMPARISON: No relevant prior studies are available for comparison. FINDINGS: Evaluation of today's study is limited secondary to patient positioning and suboptimal timing of cont rast bolus. No obvious central or segmental filling defect is visualized within the pulmonary arterie s to suggest pulmonary embolism. The heart is normal in size. Evaluation of the lung parenchyma demon strates dependent atelectasis without significant pleural effusion or focal airspace disease. Limited imaging of the upper abdomen shows no definitive evidence of acute abnormality. Evaluation of soft tissue structures demonstrates there has been interval bilateral mastectomy and pl acement of tissue expanders and surgical drains. Evaluation of bony structures demonstrates no evidence of acute bony abnormality. IMPRESSION: 1. Technically limited study as described above without definitive evidence of pulmonary embolism or acute parenchymal process. 2. Postsurgical changes within the chest from recent bilateral mastectomy and surgical reconstruction . Signer Name: Eli Bolton MD Signed: 07/08/2019 9:39 PM Workstation Name: [id number]
[2019-07-08] MEDS: CLINDAMYCIN 300 MG CAP PO SCH (22:39)
[2019-07-08 23:05] LABS: Basophils # (Auto) 0.2 K/mm3 (0.0-0.1); Basophils % (Auto) 2.4 % (0.0-1.8); Eosinophils % (Auto) 0.1 % (0.0-4.3); Hematocrit 33.2 % (30.3-42.9); Hemoglobin 11.1 gm/dl (10.1-14.3); Lymphocytes # (Auto) 1.6 K/mm3 (1.2-5.4); Lymphocytes % (Auto) 18.6 % (13.4-35.0); Mean Corpuscular HGB Conc 34 % (30-34); Mean Corpuscular Volume 94 fl (79-97); Monocytes # (Auto) 1.1 K/mm3 (0.0-0.8); Monocytes % (Auto) 12.2 % (0.0-7.3); Platelet Count 144 K/mm3 (140-440); Red Blood Count 3.53 M/mm3 (3.65-5.03); Red Cell Distribution Width 17.3 % (13.2-15.2)
[2019-07-09] MEDS ORDERED: IBUPROFEN 600 MG TAB PO ONE (01:00)
[2019-07-09] MEDS: KETOROLAC 10 MG TAB PO PRN ×2 (02:50→17:30)
--- NOTE | 2019-07-09 07:46 | Progress Note ---
Assessment and Plan This is a 34 year old lady POD# 2 bilateral mastectomy with left ALND for Stage II left breast cancer of UOQ; patient also NERI positive gene mutation. 1. Tachycardia and febrile yesterday and overnight. CBC, Chem [address] and cardiac enzyme [address]. CT PE protocol negative findings for PE. CT with atetlectasis and probable cause for fever. ISS encouraged yesterday and again today. Fever with improvement today of 100.0. LE doppler U/S to rule out DVT pending from this morning. EKG sinus tachycardia. Hospitalist consulted as well this morning for additional recommendations. 2. Bilateral chest incisions healing well. CLAY drain education prior to discharge. Adjustments made to patient's pain medicine overnight with improved pain control. 3. OOB to hallway. 4. Will followup with the above. 5. Will order PT as out patient given left ALND. Subjective Date of service: 07/09/19 Principal diagnosis: Stage II left breast cancer, NERI positive gene mutation Interval history: This is a 34 year old lady POD# 2 bilateral mastectomy with left ALND for Stage II left breast cancer of UOQ. Tachycardia and febrile yesterday and overnight. Normal labs and negative CT findings for PE. Objective - Constitutional Vitals: Vital Signs - 12hr 07/09/07/09/19 07/09/19 00:00 02:46 04:02 Temperature 102.6 F H 100.8 F H 100.0 F H Pulse Rate 123 H 116 H Respiratory 20 20 Rate Blood Pressure 117/61 96/46 O2 Sat by Pulse 100 91 Oximetry General appearance: Present: no acute distress - EENT Eyes: PERRL, EOM intact ENT: hearing intact, clear oral mucosa, dentition normal Ears: bilateral: normal - Neck Neck: supple, normal ROM - Respiratory Respiratory effort: labored - Breasts Breasts: other (bilateral breast mounds soft with appropriated tenderness; no hematoma, skin well perfused, CLAY drains to bulb suction) - Cardiovascular Rhythm: regular Extremities: no ischemia, pulses intact, pulses symmetrical, No edema, normal temperature, normal color, Full ROM Extremity abnormal: edema (mild lower ext edema-probable due to third spacing from surgery and lower ext u/s pendiing) - Gastrointestinal General gastrointestinal: Present: soft, non-tender, non-distended Rectal Exam: deferred - Genitourinary Female genitourinary: deferred - Integumentary Integumentary: clear, warm, dry - Musculoskeletal Musculoskeletal: strength equal bilaterally - Neurologic Neurologic: CNII-XII intact, moves all extremities - Psychiatric Psychiatric: appropriate mood/affect, intact judgment & insight, memory intact, cooperative - Labs CBC & Chem 7: 07/08/19 22:34 07/08/19 20:13 Labs: Abnormal lab results 07/08/19 07/08/19 Range/Units 20:13 22:34 RBC 3.53 L (3.65-5.03) M/mm3 RDW 17.3 H (13.2-15.2) % [place] % (Auto) 12.2 H (0.0-7.3) % Baso % (Auto) 2.4 H (0.0-1.8) % [place] # 1.1 H (0.0-0.8) K/mm3 Baso # 0.2 H (0.0-0.1) K/mm3 Carbon Dioxide 21 L (22-30) mmol/L Medications & Allergies - Medications Allergies/Adverse Reactions: Allergies No Known Allergies Allergy (Verified 07/05/19 11:31) Home Medications: Home Medications Medication Instructions Recorded Confirmed Last Taken Type Docusate Sodium [Colace CAP] 100 mg PO BID capsule 07/08/19 Unknown Rx Gabapentin 300 mg PO Q8HR capsule 07/08/19 Unknown Rx Ondansetron [Zofran ODT TAB] 8 mg PO Q8H PRN tab.rapdis 07/08/19 Unknown Rx oxyCODONE /ACETAMINOPHEN [Percocet 1 tab PO Q4H PRN tablet 07/08/19 Unknown Rx 5/325 mg] Active Medications: Generic Name Dose Route Start Last Admin Trade Name Freq PRN Reason Stop Dose Admin Acetaminophen 650 mg 07/08/19 20:00 Tylenol PO Q6H PRN Pain, Mild (1-3) Clindamycin HCl 300 mg 07/08/19 18:00 07/08/19 22:39 Cleocin PO 300 mg Q6H PEREZ Administration Diphenhydramine HCl 25 mg 07/07/19 13:31 Benadryl PO Q8H PRN Itching Docusate Sodium 100 mg 07/07/19 22:00 07/08/19 09:25 Colace PO Not Given BID PEREZ Fentanyl 100 mcg 07/07/19 06:00 07/07/19 07:53 Sublimaze IV 100 mcg ONCE PRN Administration sedation for nerve block Lactated Ringer's 1,000 mls @ 125 mls/hr 07/07/19 14:00 Lactated Ringers IV DIRECT [facility] Ketorolac Tromethamine 10 mg 07/09/19 00:53 07/09/19 02:50 Toradol PO 07/14/19 00:52 10 mg Q6H PRN Administration Pain, Mild (1-3) Metoclopramide HCl 10 mg 07/07/19 13:31 07/08/19 09:17 Reglan PO 10 mg Q6H PRN Administration Nausea And Vomiting Morphine Sulfate 2 mg 07/08/19 17:50 07/08/19 21:00 Morphine IV 2 mg Q4H PRN Administration Pain, Moderate (4-6) Ondansetron HCl 4 mg 07/07/19 13:31 07/08/19 02:38 Zofran IV 4 mg Q8H PRN Administration N/V unrelieved by Marsha Ondansetron HCl 8 mg 07/08/19 05:23 07/08/19 22:53 Zofran Odt PO 8 mg Q8H PRN Administration Nausea And Vomiting Oxycodone/Acetaminophen 2 tab 07/08/19 21:45 07/08/19 22:38 Percocet 5/325 PO 2 tab Q6H PRN Administration Pain, Moderate (4-6) Sodium Chloride 10 ml 07/07/19 13:31 Sodium Chloride Flush Syringe 10 Ml IV PRN PRN LINE FLUSH
[2019-07-09] MEDS: oxyCODONE /ACETAMINOPHEN 5-325MG TAB PO PRN ×3 (07:50→21:38)
[2019-07-09] MEDS: CLINDAMYCIN 300 MG CAP PO SCH ×2 (07:52→14:31)
--- NOTE | 2019-07-09 11:45 | Vascular Lab Report ---
DUPLEX DOPPLER LOWER EXTREMITY VEINS, BILATERAL INDICATION: rule out bilateral lower ext DVT. TECHNIQUE: Duplex doppler imaging was performed through the veins of both lower extremities using ve nous compression and other maneuvers. COMPARISON: No relevant prior imaging study available. FINDINGS: Right Common femoral vein: Negative. Right Superficial femoral vein: Negative. Right Popliteal vein: Negative. Right Calf veins: Negative. Left Common femoral vein: Negative. Left Superficial femoral vein: Negative. Left Popliteal vein: Negative. Left Calf veins: Negative. Additional findings: None.. IMPRESSION: No sonographic evidence for DVT in either lower extremity. Signer Name: Chance Good Jr, MD Signed: 07/09/2019 11:41 AM Workstation Name: [id number]
[2019-07-09 14:33] LABS: Bacteria,Urine 1+ /HPF (Negative); Bilirubin,Urine NEG (Negative); Blood,Urine NEG (Negative); Color,Urine Yellow (Yellow); Mucus,Urine 1+ /HPF; Protein,Urine <15 mg/dL mg/dL (Negative); Urobilinogen,Urine < 2.0 mg/dL (<2.0)
[2019-07-09] MEDS: ONDANSETRON 8 MG ODT TAB PO PRN ×2 (14:33→21:41)
--- NOTE | 2019-07-09 15:02 | Consultation ---
History of Present Illness - Reason for Consult Consult date: 07/09/19 Fever Requesting physician: JESSICA JENKINS - History of Present Illness 34-year-old woman who is POD 2 status post mastectomy for breast cancer. Medicine consulted for management of fever. Patient is complaining of sore throat, it is painful when she swallows. She is also complaining of nasal stuffiness, and cough productive of scant thick sputum. Otherwise she has no other complaints. She denies dysuria, denies chest pain shortness of breath or lower extremity swelling or pain. Past History Past Medical History: other (Breast cancer) Medications and Allergies Allergies Allergy/AdvReac Type Severity Reaction Status Date / Time No Known Allergies Allergy Verified 07/05/19 11:31 Home Medications Medication Instructions Recorded Confirmed Last Taken Type Docusate Sodium [Colace CAP] 100 mg PO BID capsule 07/08/19 Unknown Rx Gabapentin 300 mg PO Q8HR capsule 07/08/19 Unknown Rx Ondansetron [Zofran ODT TAB] 8 mg PO Q8H PRN tab.rapdis 07/08/19 Unknown Rx oxyCODONE /ACETAMINOPHEN [Percocet 1 tab PO Q4H PRN tablet 07/08/19 Unknown Rx 5/325 mg] Active Meds: Active Medications Acetaminophen (Tylenol) 650 mg PO Q6H PRN PRN Reason: Pain, Mild (1-3) Clindamycin HCl (Cleocin) 300 mg PO Q6H [facility] Last Admin: 07/09/19 14:31 Dose: 300 mg Documented by: Diphenhydramine HCl (Benadryl) 25 mg PO Q8H PRN PRN Reason: Itching Docusate Sodium (Colace) 100 mg PO BID [facility] Last Admin: 07/08/19 09:25 Dose: Not Given Documented by: Fentanyl (Sublimaze) 100 mcg IV ONCE PRN PRN Reason: sedation for nerve block Last Admin: 07/07/19 07:53 Dose: 100 mcg Documented by: Lactated Ringer's (Lactated Ringers) 1,000 mls @ 125 mls/hr IV DIRECT [facility] Ketorolac Tromethamine (Toradol) 10 mg PO Q6H PRN PRN Reason: Pain, Mild (1-3) Stop: 07/14/19 00:52 Last Admin: 07/09/19 02:50 Dose: 10 mg Documented by: Metoclopramide HCl (Reglan) 10 mg PO Q6H PRN PRN Reason: Nausea And Vomiting Last Admin: 07/08/19 09:17 Dose: 10 mg Documented by: Morphine Sulfate (Morphine) 2 mg IV Q4H PRN PRN Reason: Pain, Moderate (4-6) Last Admin: 07/08/19 21:00 Dose: 2 mg Documented by: Ondansetron HCl (Zofran) 4 mg IV Q8H PRN PRN Reason: N/V unrelieved by Reglan Last Admin: 07/08/19 02:38 Dose: 4 mg Documented by: Ondansetron HCl (Zofran Odt) 8 mg PO Q8H PRN PRN Reason: Nausea And Vomiting Last Admin: 07/09/19 14:33 Dose: 8 mg Documented by: Oxycodone/Acetaminophen (Percocet 5/325) 2 tab PO Q6H PRN PRN Reason: Pain, Moderate (4-6) Last Admin: 07/09/19 14:31 Dose: 2 tab Documented by: Sodium Chloride (Sodium Chloride Flush Syringe 10 Ml) 10 ml IV PRN PRN PRN Reason: LINE FLUSH Review of Systems All systems: negative (Except as stated in HPI) Exam - Constitutional Vitals: Temp Pulse Resp BP Pulse Ox 97.9 F 105 H 18 104/60 92 07/09/19 12:49 07/09/19 12:49 07/09/19 12:49 07/09/19 12:49 07/09/19 12:49 General appearance: Present: no acute distress, well-nourished - EENT Eyes: Present: PERRL ENT: hearing intact, clear oral mucosa - Neck Neck: Present: supple, normal ROM - Respiratory Respiratory effort: normal Respiratory: bilateral: CTA - Cardiovascular Heart Sounds: Present: S1 & S2. Absent: rub, click - Extremities Extremities: pulses symmetrical, No edema Peripheral Pulses: within normal limits - Abdominal General gastrointestinal: Present: soft, non-tender, non-distended, normal bowel sounds Female genitourinary: Present: normal - Integumentary Integumentary: Present: clear, warm, dry (Breast dressing not removed) - Musculoskeletal Musculoskeletal: gait normal, strength equal bilaterally - Psychiatric Psychiatric: appropriate mood/affect, intact judgment & insight - Neurologic Neurologic: CNII-XII intact, moves all extremities Results - Labs CBC & Chem 7: 07/08/19 22:34 07/08/19 20:13 Labs: Abnormal lab results 07/08/19 07/08/19 07/09/19 Range/Units 20:13 22:34 14:05 RBC 3.53 L (3.65-5.03) M/mm3 RDW 17.3 H (13.2-15.2) % [place] % (Auto) 12.2 H (0.0-7.3) % Baso % (Auto) 2.4 H (0.0-1.8) % [place] # 1.1 H (0.0-0.8) K/mm3 Baso # 0.2 H (0.0-0.1) K/mm3 Carbon Dioxide 21 L (22-30) mmol/L Ur Specific [place] 1.031 H (1.003-1.030) - Imaging and Cardiology CT scan - chest: image reviewed (No infiltrates or pulmonary embolism) Assessment and Plan 34-year-old woman who is postoperative day 2 for mastectomy for indication of breast cancer. Medicine consulted for management of fever. Fever Obtain rapid strep, throat pain may be due to intubation Obtain rapid flu Obtain UA and blood cultures. If UA blood cultures rapid strep and rapid flu are negative, patient may be discharged home. However it was explained to patient that if her blood cultures do come back positive she will be asked to come back to the hospital.
[2019-07-09 18:47] VITALS: BP 122/68
== END 2019-07-09 21:30 | disposition home or self-care (01) ==
LOC: OR 05:47 → MERGE 08:00 → OB 13:31
PROVIDERS: ADMIT Surgery; ATTEND Surgery
DX: C50.412 Malignant neoplasm of upper-outer quadrant of left female breast (principal)
CPT/HCPCS: 19303; 36415; 71275; 76098; 78800; 80048; 81001; 81025; 83735; 84100; 84484; 85025; 87040; 87086; 87116; 87400; 87430; 88307; 88331; 88341; 88342; 93005; 93010; 93970; 96374; 96375; 96376; A9541; C1789; G0378; J0690; J1170; J1580; J2250; J2270; J2370; J2405; J2704; J3010; J7120; Q0162; Q9967; Q9968; 88309; 88333

== ENCOUNTER 2020-11-28 07:36 | Day surgery (SDC) | payer MEDICAID, OTHER ==
[~2020-11-28 07:36] MED LIST changes: -BACITRACIN 50,000 UNIT VIAL IR ONE; +BUPIVACAINE/PF (0.5%) 5 MG/1 ML 30 ML VIAL INFILTRATI ONE; -GENTAMICIN 40 MG/ML VIAL 2 ML IV ONE; +LIDOCAINE (1%) 10 MG/1 ML VIAL 20 ML MDV INFILTRATI ONE; -SODIUM CHLORIDE 0.9% P/F 10 ML VIAL INFILTRATI ONE; -WATER FOR IRRIG STERILE 1,500 ML BOTTLE IR ONE; -ceFAZolin 1 GM VIAL IV ONE; -ceFAZolin/Water 2 GM/20 ML 2 GM/20 ML SYRINGE IV NR
[2020-11-28] MEDS ORDERED: LACTATED RINGERS 1,000 ML ONE (08:03)
[2020-11-28] MEDS ORDERED: LIDOCAINE (1%) 10 MG/1 ML VIAL 20 ML MDV ONE (08:23)
[2020-11-28] MEDS ORDERED: BUPIVACAINE/PF (0.25%) 2.5 MG/ML 30 ML VIAL INFILTRATI ONE (08:23)
[2020-11-28] MEDS ORDERED: LACTATED RINGERS 1,000 ML IV SCH (08:30)
--- NOTE | 2020-11-28 08:35 | Anesthesia Day of Surgery ---
Anesthesia Day of Surgery - Day of Surgery Patient Examined: Yes Patient H&P Reviewed: Yes Patient is NPO: Yes
--- NOTE | 2020-11-28 08:36 | Anesthesia Consultation ---
Anesthesia Consult and Med Hx Date of service: 11/28/20 - Airway Anesthetic Teeth Evaluation: Chipped (Missing) ROM Head & Neck: Adequate Mental/Hyoid Distance: Adequate Mallampati Class: Class II Intubation Access Assessment: Probably Good - Pre-Operative Health Status ASA Pre-Surgery Classification: ASA3 Proposed Anesthetic Plan: MAC (GA if needed) - Pulmonary Hx Smoking: Yes (STOPPED 2018) Hx Sleep Apnea: No (FLORENCIO PRE SCREEN LOW RISK) - Cardiovascular System Hx Hypertension: No - Central Nervous System Hx Neuromuscular Disorder: Yes (Neuropathy-both arms. Migraines) Hx Back Pain: Yes - Gastrointestinal Hx Gastroesophageal Reflux Disease: Yes (Dietary) - Hematic Hx Anemia: Yes Hx Sickle Cell Disease: No - Other Systems Hx Alcohol Use: Yes (OCCA WINE) Hx Substance Use: Yes (OCC THC) Hx Cancer: Yes Hx Obesity: Yes - Additional Comments Anesthesia Medical History Comments: PONV. Last here 07/2019
[2020-11-28] MEDS ORDERED: MIDAZOLAM 2 MG/2 ML INJ IV SCH (09:00)
[2020-11-28] MEDS ORDERED: LIDOCAINE PF 100 MG/5 ML (CARDIAC SYRINGE) IV ONE (09:15)
[2020-11-28] MEDS ORDERED: propofoL 200 MG/20 ML VIAL IV ONE (09:15)
[2020-11-28] MEDS ORDERED: fentaNYL 100 MCG/2 ML INJ ONE (09:16)
[2020-11-28] MEDS ORDERED: BUPIVACAINE/PF (0.5%) 5 MG/1 ML 30 ML VIAL INFILTRATI ONE (10:06)
[2020-11-28] MEDS ORDERED: LIDOCAINE (1%) 10 MG/1 ML VIAL 20 ML MDV INFILTRATI ONE (10:06)
[2020-11-28] MEDS ORDERED: SODIUM CHLORIDE 0.9% IRR 1,500 ML BOTTLE IR ONE (10:07)
--- NOTE | 2020-11-28 10:18 | Short Stay Summary ---
Short Stay Documentation Date of service: 11/28/20 - History Principal diagnosis: breast cancer H&P: obtained from office - Allergies and Medications Current Medications: Allergies No Known Allergies Allergy (Verified 07/05/19 11:31) Home Medications Medication Instructions Recorded Confirmed Last Taken Type Famotidine [Pepcid] 20 mg PO PRN PRN 11/22/20 11/22/20 Unknown History Gabapentin 300 mg PO PRN PRN 11/22/20 11/22/20 Unknown History Zoladex 1 dose IM Q3W 11/22/20 11/28/20 11/07/20 09:00 History Active Medications Lactated Ringer's (Lactated Ringers) 1,000 mls @ 75 mls/hr IV DIRECT PEREZ Midazolam HCl (Midazolam 2 Mg/2 Ml Inj) 2 mg IV ONCE PEREZ Stop: 11/28/20 17:00 - Brief post op/procedure progress note Date of procedure: 11/28/20 Pre-op diagnosis: breast cancer Post-op diagnosis: same Procedure: port removal Anesthesia: MAC, local Findings: Port removed completely in 3 pieces Surgeon: GABRIELA MEJIA Estimated blood loss: minimal Pathology: list (port (3 pieces) - subcutaneous port, catheter, and blue piece with small piece of catheter) Specimen disposition: to lab Condition: stable - Hospital course Hospital course: Pt observed in PACU and discharged to home in stable condition when criteria met - Disposition Condition at discharge: Good Disposition: DC-01 TO HOME OR SELFCARE Short Stay Discharge Plan Activity: no restrictions Diet: regular Wound: open to air, per your surgeon's advice (May remove outer gauze and clear dressing in 2 days. You may shower tomorrow. There is glue directly on the incision which will fall off on its own) Follow up with: PRIMARY CARE, [Primary Care Provider] - 7 Days Forms: Work/School Release Form Prescriptions: Ibuprofen [Motrin 800 MG tab] 800 mg PO Q8HR PRN #30 tablet PRN Reason: Pain , Severe (7-10)
[2020-11-28] MEDS ORDERED: ONDANSETRON 4 MG/2 ML INJ ONE (10:37)
[2020-11-28 10:51] VITALS: BP 114/68
[2020-11-28] MEDS ORDERED: ONDANSETRON 4 MG/2 ML INJ IV ONE (11:09)
--- NOTE | 2020-11-28 14:21 | Operative Report ---
Operative Report Operative Report: Date of procedure: 11/28/20 Pre-op diagnosis: breast cancer Post-op diagnosis: same Procedure: port removal Anesthesia: MAC, local Findings: Port removed completely in 3 pieces Surgeon: GABRIELA MEJIA Estimated blood loss: minimal Pathology: list (port (3 pieces) - subcutaneous port, catheter, and blue piece with small piece of catheter) Specimen disposition: to lab Condition: stable Hospital course: Pt observed in PACU and discharged to home in stable condition when criteria met HPI and indication: Patient is a 35-year-old female with breast cancer who underwent chemotherapy via a right sided Port-A-Cath. Her chemotherapy is complete and she was cleared by her oncologist to have the port removed. She was evaluated in the surgery clinic. All risks, benefits, alternatives to surgery discussed with the patient. Questions were answered and consent obtained for port removal. Procedure in detail: Patient was identified in the preoperative area, taken back to the operating room and placed on the operating room table in supine position. After anesthesia was induced the right upper chest was prepped and draped in the usual sterile fashion and a timeout performed. Local anesthetic was infil trated into the skin at the intended incision site. The patient was placed in Trendelenburg. An incision was made through the old scar using a 15 blade and dissection carried down through the subcutaneous tissue using a hemostat. The port was identified and bluntly dissected from the capsule. The catheter was grasped between 2 hemostats and cut. The subcutaneous port was removed along with the blue piece to the port with a small bit of catheter on the inside. The catheter was then removed and pressure held for 5 minutes. All 3 pieces were passed off the table as a specimen. The wound was irrigated and hemostasis very carefully ensured. Local anesthetic was once again infiltrated into the subcutaneous tissue. The wound was then closed in layered fashion. The deep dermal layer was closed with 3-0 Vicryl interrupted sutures. The skin was approximated using 4-0 Monocryl subcuticular running stitch and skin glue. Once the glue was dry a compression dressing was applied using a 4 x 4 gauze and a Tegaderm. At the end of the case, all sponge, instrument, sharp counts were correct x2. The patient was awoken from anesthesia and taken to PACU in stable condition.
== END 2020-11-28 07:37 | disposition home or self-care (01) ==
LOC: OR 07:36
PROVIDERS: ATTEND Surgery
DX: Z45.2 Encounter for adjustment and management of vascular access device (principal); K21.9 Gastro-esophageal reflux disease without esophagitis; E66.9 Obesity, unspecified; F32.9 Major depressive disorder, single episode, unspecified; G43.909 Migraine, unspecified, not intractable, without status migrainosus; D64.9 Anemia, unspecified; Z85.3 Personal history of malignant neoplasm of breast; Z79.899 Other long term (current) drug therapy; Z87.891 Personal history of nicotine dependence; Z90.13 Acquired absence of bilateral breasts and nipples; Z72.89 Other problems related to lifestyle; Z98.890 Other specified postprocedural states; Z80.8 Family history of malignant neoplasm of other organs or systems; Z68.35 Body mass index [BMI] 35.0-35.9, adult
CPT/HCPCS: 36590; 88300; J2001; J2250; J2405; J2704; J3010; J7120; U0003; 88302

== ENCOUNTER 2021-10-19 07:31 | Emergency (ER) | payer MEDICAID ==
[2021-10-19] MEDS ORDERED: ONDANSETRON 4 MG/2 ML INJ IV ONE (08:49)
[2021-10-19] MEDS ORDERED: SODIUM CHLORIDE 0.9% 1000 ML 1,000 ML IV ONE ×2 (09:04→10:19)
[2021-10-19] MEDS ORDERED: fentaNYL 100 MCG/2 ML INJ IV ONE (09:04)
--- NOTE | 2021-10-19 09:30 | Emergency Department Report ---
HPI - General Chief Complaint: Nausea/Vomiting/Diarrhea Time Seen by Provider: 10/19/21 08:47 - HPI HPI: Room 21 The patient is a 36-year-old female present with chief complaint of nausea vomiting. The patient states her symptoms began yesterday morning with intractable nausea vomiting. Patient states she initially did not have any abdominal pain but today she exhibits epigastric soreness from her frequent vomiting. Has been no diarrhea. There is been no history of fevers. The patient states that the last meal she had before awakening yesterday morning with her symptoms was Filipino food which included chicken and rice. The patient states others ate this food and did not get sick. ED Past Medical Hx - Past Medical History Hx GERD: Yes (RARE , PRN MEDS) Hx Headaches / Migraines: Yes (OCCA MIGRAINES) Additional medical history: Breast CA status post bilateral mastectomy XRT/chemo (2019) - Surgical History Hx Breast Surgery: No Additional Surgical History: Chest port - Family History Family history: no significant - Social History Smoking Status: Never Smoker Substance Use Type: None (Denies illicit drug use), Alcohol (Occasional) - Medications Home Medications: Home Medications Medication Instructions Recorded Confirmed Last Taken Type Famotidine [Pepcid] 20 mg PO PRN PRN 11/22/20 11/22/20 Unknown History Gabapentin 300 mg PO PRN PRN 11/22/20 11/22/20 Unknown History Zoladex 1 dose IM Q3W 11/22/20 11/28/20 11/07/20 09:00 History Ibuprofen [Motrin 800 MG tab] 800 mg PO Q8HR PRN #30 tablet 11/28/20 Unknown Rx Ondansetron [Zofran Odt] 4 mg PO Q8HR PRN #30 tab.rapdis 11/28/20 Unknown Rx Famotidine [Pepcid] 20 mg PO BID #30 tablet 10/19/21 Unknown Rx Ondansetron [Zofran ODT TAB] 8 mg PO Q8HR #20 tab.rapdis 10/19/21 Unknown Rx ED Review of Systems ROS: Stated complaint: N/V Other details as noted in HPI Constitutional: denies: fever Eyes: denies: eye pain ENT: denies: throat pain Respiratory: no symptoms reported Cardiovascular: denies: chest pain Gastrointestinal: abdominal pain, nausea, vomiting. denies: diarrhea Genitourinary: denies: dysuria Musculoskeletal: denies: back pain Neurological: denies: headache Physical Exam - Physical Exam Vital Signs: Vital Signs 10/19/21 09:09 Pulse Rate 70 Respiratory 20 Rate Blood Pressure 135/76 [Right] O2 Sat by Pulse 100 Oximetry Physical Exam: GENERAL: The patient is well-developed well-nourished female lying on stretcher not appearing to be in acute. [] HEENT: Normocephalic. Atraumatic. Extraocular motions are intact. Patient has moist mucous membranes. NECK: Supple. Trachea midline CHEST/LUNGS: Clear to auscultation. There is no respiratory distress noted. HEART/CARDIOVASCULAR: Regular. There is no tachycardia. There is no gallop rub or murmur. ABDOMEN: Abdomen is soft, with diffuse mild tenderness to palpation. No rebound or guarding. Patient has normal bowel sounds. There is no abdominal distention. SKIN: There is no rash. There is no edema. There is no diaphoresis. NEURO: The patient is awake, alert, and oriented. The patient is cooperative. The patient has no focal neurologic deficits. The patient has normal speech. GCS 15 MUSCULOSKELETAL: There is no evidence of acute injury. ED Course Vital Signs 10/19/21 09:09 Pulse Rate 70 Respiratory 20 Rate Blood Pressure 135/76 [Right] O2 Sat by Pulse 100 Oximetry ED Medical Decision Making - Lab Data Result diagrams: 10/19/21 09:27 10/19/21 09:27 Laboratory Tests 10/19/21 10/19/21 10/19/21 09:01 09:27 09:27 WBC 15.1 H RBC 4.64 Hgb 14.5 H Hct 42.4 MCV 91 MCH 31 MCHC 34 RDW 14.1 Plt Count 325 Lymph % (Auto) 14.9 [place] % (Auto) 3.7 Eos % (Auto) 0.0 Baso % (Auto) 0.8 Lymph # (Auto) 2.3 [place] # (Auto) 0.6 Eos # (Auto) 0.0 Baso # (Auto) 0.1 Seg Neutrophils % 80.6 H Seg Neutrophils # 12.2 H Sodium 139 Potassium 3.6 Chloride 105.0 Carbon Dioxide 16 L Anion Gap 22 BUN 9 Creatinine 0.6 Estimated GFR > 60 BUN/Creatinine Ratio 15 Glucose 119 H POC Glucose 123 H Calcium 9.9 Total Bilirubin 0.40 AST 25 ALT 18 Alkaline Phosphatase 69 Total Protein 7.9 Albumin 4.9 Albumin/Globulin Ratio 1.6 Lipase 16 HCG, Qual Urine Color Urine Turbidity Urine pH Ur Specific [place] Urine Protein Urine Glucose (UA) Urine Ketones Urine Blood Urine Nitrite Urine Bilirubin Urine Urobilinogen Ur Leukocyte Esterase Urine WBC (Auto) Urine RBC (Auto) U Epithel Cells (Auto) 10/19/21 10/19/21 09:27 11:51 WBC RBC Hgb Hct MCV MCH MCHC RDW Plt Count Lymph % (Auto) [place] % (Auto) Eos % (Auto) Baso % (Auto) Lymph # (Auto) [place] # (Auto) Eos # (Auto) Baso # (Auto) Seg Neutrophils % Seg Neutrophils # Sodium Potassium Chloride Carbon Dioxide Anion Gap BUN Creatinine Estimated GFR BUN/Creatinine Ratio Glucose POC Glucose Calcium Total Bilirubin AST ALT Alkaline Phosphatase Total Protein Albumin Albumin/Globulin Ratio Lipase HCG, Qual Negative Urine Color Straw Urine Turbidity Clear Urine pH 8.0 H Ur Specific [place] 1.060 H Urine Protein 30 mg/dl Urine Glucose (UA) Neg Urine Ketones 80 Urine Blood Sm Urine Nitrite Neg Urine Bilirubin Neg Urine Urobilinogen < 2.0 Ur Leukocyte Esterase Neg Urine WBC (Auto) 1.0 Urine RBC (Auto) 9.0 U Epithel Cells (Auto) 1.0 - Radiology Data Radiology results: report reviewed (CT abdomen pelvis), image reviewed (CT abdom en pelvis) [place] [id number] Cat Scan Report Signed Patient: HUNTER PATEL MR#: [id number] : 1985 Acct:[id number] Age/Sex: 36 / F ADM Date: 10/19/21 Loc: ED Attending Dr: Ordering Physician: MIGDALIA ESPOSITO MD Date of Service: 10/19/21 Procedure(s): CT abdomen pelvis w con Accession Number(s): [id number] cc: MIGDALIA ESPOSITO MD CT ABDOMEN AND PELVIS WITH CONTRAST HISTORY: Intractable nausea vomiting, diffuse abd pain COMPARISON: None TECHNIQUE: Routine abdominal and pelvic CT exam performed following intravenous contrast administration.. All CT scans at this location are performed using CT dose reduction for ALARA by means of automated exposure control. FINDINGS: CT ABDOMEN: Lung Bases: No significant abnormality. Liver: No significant abnormality. Biliary: No significant abnormality. Spleen: No significant abnormality. Unenlarged. Pancreas: No significant abnormality. Adrenals: No significant abnormality. Kidneys: No acute findings. Left renal cyst noted. Lymphatics: No lymphadenopathy. Vasculature: No significant abnormality. Bowel/Peritoneum: No significant abnormality. No free air. No free fluid. Normal appendix. CT PELVIC: : No significant abnormality. Lymphatics: No lymphadenopathy. Osseous Structures: No aggressive appearing osseous lesions. Additional Findings: None IMPRESSION: 1. No acute findings or findings to explain the patient's symptoms. Signer Name: Hussain Ward MD Signed: 10/19/2021 10:53 AM Workstation Name: [id number] Transcribed By: GILBERTO Dictated By: Hussain Ward MD Electronically Authenticated By: Hussain Ward MD Signed Date/Time: 10/19/211052 DD/ 51 TD/TT: - Differential Diagnosis Gastritis, foodborne illness, peptic ulcer disease, SBO, UTI Critical care attestation.: If time is entered above; I have spent that time in minutes in the direct care of this critically ill patient, excluding procedure time. ED Disposition Clinical Impression: Nausea & vomiting Disposition: 01 HOME / SELF CARE / HOMELESS Is pt being admited?: No Does the pt Need Aspirin: No Condition: Stable Additional Instructions: Return to the emergency department should you develop worsening symptoms, inability to tolerate food or liquids, high fever or any other concerns Prescriptions: Famotidine [Pepcid] 20 mg PO BID #30 tablet Ondansetron [Zofran ODT TAB] 8 mg PO Q8HR #20 tab.rapdis Referrals: NARA VALENCIA MD [Staff Physician] - 3-5 Days (Dr. Valencia is a gastroe nterologist. Please follow-up with him for further evaluation) Time of Disposition: 12:57
[2021-10-19 09:39] LABS: Basophils # (Auto) 0.1 K/mm3 (0.0-0.1); Basophils % (Auto) 0.8 % (0.0-1.8); Hematocrit 42.4 % (30.3-42.9); Hemoglobin 14.5 gm/dl (10.1-14.3); Lymphocytes # (Auto) 2.3 K/mm3 (1.2-5.4); Lymphocytes % (Auto) 14.9 % (13.4-35.0); Mean Corpuscular HGB Conc 34 % (30-34); Mean Corpuscular Volume 91 fl (79-97); Monocytes # (Auto) 0.6 K/mm3 (0.0-0.8); Monocytes % (Auto) 3.7 % (0.0-7.3); Platelet Count 325 K/mm3 (140-440); Red Blood Count 4.64 M/mm3 (3.65-5.03); Red Cell Distribution Width 14.1 % (13.2-15.2)
[2021-10-19 10:02] LABS: Alanine Aminotransferase 18 units/L (7-56); Albumin 4.9 g/dL (3.9-5); Blood Urea Nitrogen 9 mg/dL (7-17); Calcium 9.9 mg/dL (8.4-10.2); Hemolysis Index 17
[2021-10-19 10:18] LABS: BUN/Creatinine Ratio 15
--- NOTE | 2021-10-19 10:58 | Cat Scan Report ---
CT ABDOMEN AND PELVIS WITH CONTRAST HISTORY: Intractable nausea vomiting, diffuse abd pain COMPARISON: None TECHNIQUE: Routine abdominal and pelvic CT exam performed following intravenous contrast administrat ion.. All CT scans at this location are performed using CT dose reduction for ALARA by means of autom ated exposure control. FINDINGS: CT ABDOMEN: Lung Bases: No significant abnormality. Liver: No significant abnormality. Biliary: No significant abnormality. Spleen: No significant abnormality. Unenlarged. Pancreas: No significant abnormality. Adrenals: No significant abnormality. Kidneys: No acute findings. Left renal cyst noted. Lymphatics: No lymphadenopathy. Vasculature: No significant abnormality. Bowel/Peritoneum: No significant abnormality. No free air. No free fluid. Normal appendix. CT PELVIC: : No significant abnormality. Lymphatics: No lymphadenopathy. Osseous Structures: No aggressive appearing osseous lesions. Additional Findings: None IMPRESSION: 1. No acute findings or findings to explain the patient's symptoms. Signer Name: Hussain Ward MD Signed: 10/19/2021 10:53 AM Workstation Name: [id number]
[2021-10-19 11:50] VITALS: BP 109/89
[2021-10-19 12:30] LABS: Bilirubin,Urine NEG (Negative); Blood,Urine SM (Negative); Color,Urine Straw (Yellow); Urobilinogen,Urine < 2.0 mg/dL (<2.0)
== END 2021-10-19 13:00 | disposition home or self-care (01) ==
LOC: ED 07:31
DX: R11.2 Nausea with vomiting, unspecified (principal)
CPT/HCPCS: 36415; 74177; 80053; 81001; 82962; 83690; 84703; 85025; 96361; 96374; 96375; 99284; J2405; J3010; J7030; Q9967